=== PATIENT | male | born 1955 | race Caucasian/White ===

== ENCOUNTER 2023-08-10 08:44 | Day surgery (SDC) | payer OTHER, SELFPAY ==
[2023-08-10 08:51] VITALS: BMI 32.4
--- NOTE | 2023-08-10 09:00 | HO.ANESPROP2 ---
[facility] Family History Family history of problems with anesthesia: No Surgical History History of Problems with Anesthesia: No Social History Social History Patient Tobacco Use Status: Never used Tobacco Use of substances other than those prescribed or required for medical reasons: No Are you DNR?: No Advance Directives: No Advance Directives Information Provided: Yes Meds Allergies Allergy/AdvReac Type Severity Reaction Status Date / Time No Known Allergies Allergy Verified 08/10/23 08:56 Active Medications: Current Medications Sodium Biphosphate/Sodium Phosphate (Sodium Phosphate,[place]-Dibasic 133 Ml Enema) 133 ml MI ONCE PRN PRN Reason: Poor Colonoscopy Prep Results Home Medications ?Medication ?Instructions ?Recorded ?Confirmed ?Last Taken ?Type Fish Oil 08/07/23 08/07/23 Unknown History fiber 08/07/23 Unknown History finasteride 5 mg DAILY 08/07/23 08/07/23 Unknown History multivitamin 08/07/23 Unknown History pantoprazole 20 mg DAILY 08/07/23 08/07/23 Unknown History simvastatin 08/07/23 Unknown History irbesartan 150 mg tablet PO 08/10/23 08/10/23 08/10/23 History Exam Height,Weight and Vital Signs: Height 5 ft 11 in Weight 105.233 kg Airway Mallampati Class: II (caps 2 laterally) TM Dist: >3cm Neck ROM: Full Heart: rrr Lungs: cta Assessment and Plan Assessment Anesthesia Assessment: Anesthesia Plan Discussed and Chart Reviewed Final Anesthetic Review Family History of Problems with Anesthesia: No History of Problems with Anesthesia: No NPO: Yes ASA Class: II Final Preanesthetic Review: No Changes in Pt Med Stat, Meds/Allgs Chart Reviewed and Consent Obtained/Reviewed Patient Risk: Low Procedure Risk: Low Anesthetic Plan Anesthetic Plan: MAC: Disposition: Standard PACU
[2023-08-10 09:11] VITALS: BP 158/80; PULSE 58; RESP 16; TEMP 36.3; O2SAT 98
[2023-08-10] MEDS: Lactated Ringers 1,000 ML 80 ML IVCONT (09:14)
[2023-08-10 10:28] VITALS: BP 139/115; PULSE 58; RESP 12; TEMP 36.2; O2SAT 93
--- NOTE | 2023-08-10 10:29 | P.BOP_ITS ---
Brief Operative Note Date of Service: 08/10/23 Pre-op diagnosis: Screening Post-op diagnosis: other (Diverticulosis) Procedure: Colonoscopy to the cecum and TI Surgeon: Isaac Cosby MD Anesthesia: MAC Was an [employer] Compliance [employer] used for this Procedure?: No Estimated blood loss (mL): 0 Pathology: none sent Condition: stable Disposition: PACU
[2023-08-10 10:30] VITALS: BP 101/60; PULSE 67
[2023-08-10 10:45] VITALS: BP 126/76; PULSE 50; RESP 15; TEMP 36.8; O2SAT 95
--- NOTE | 2023-08-10 10:50 | OP_ITS ---
DATE OF SERVICE: 08/10/2023 SURGEON: Isaac Cosby MD INDICATIONS: The patient presents for evaluation of colorectal cancer screening and personal history of tubular adenoma of the colon. Full consent has been obtained from him for this, including risks of bleeding and perforation. PREOPERATIVE DIAGNOSIS: POSTOPERATIVE DIAGNOSIS: PROCEDURE PERFORMED: Colonoscopy to cecum and terminal ileum. ESTIMATED BLOOD LOSS: COMPLICATIONS: ANESTHESIA: Monitored anesthesia care. ASSISTANTS: SPECIMENS: PREOPERATIVE DIAGNOSES: Colorectal cancer screening and personal history of tubular adenoma of the colon. POSTOPERATIVE DIAGNOSES: Colorectal cancer screening, personal history of tubular adenoma of the colon, mild sigmoid diverticulosis, and internal hemorrhoids. DESCRIPTION OF PROCEDURE: The patient was placed in the left decubitus position. The digital rectal exam revealed no abnormalities. The Olympus video pediatric colonoscope was then entered into the rectum and advanced easily to the cecum. Once in the cecum, I did identify normal-appearing cecal pouch with appendiceal orifice and a normal-appearing ileocecal valve. The terminal ileum was cannulated and appeared normal. The scope was withdrawn back in the colon. The entire cecum and ileocecal valve appeared normal. The scope was slowly withdrawn assessing all mucosal surfaces carefully. Preparation was excellent. I did not visualize any sign of polyps, colitis, nor angiodysplasias. There was a mild amount of sigmoid diverticulosis. There was some areas of slight erythema in the sigmoid colon, but not consistent with colitis nor any other abnormality. In the rectum, scope was retroflexed, visualizing some internal hemorrhoids, but no other pathology. The rectal mucosa appeared normal. The scope was straightened and withdrawn from the patient. He tolerated the procedure well and was returned to the recovery area in stable condition. IMPRESSION: 1. Diverticulosis. 2. Internal hemorrhoids. PLAN: I would recommend a repeat colonoscopy in 5 years for further screening. He will, otherwise, see me on a p.r.n. basis. Isaac Cosby MD RMW/VAHEL / [phone]
--- NOTE | 2023-08-10 12:51 | PC.NURSE ---
24 hour update documented on paper chart.
== END 2023-08-10 11:03 | disposition home or self-care (01) ==
PROVIDERS: PCP Family Medicine; Visit Provider Internal Medicine
PROC: 0DJD8ZZ Inspection of Lower Intestinal Tract, Via Natural or Artificial Opening Endoscopic (ICD-10-PCS; CPT 45378; principal; 2023-08-10 09:40)
DX: Z12.11 Encounter for screening for malignant neoplasm of colon (principal); Z86.010 Personal history of colon polyps; K57.30 Diverticulosis of large intestine without perforation or abscess without bleeding; K64.8 Other hemorrhoids; K21.9 Gastro-esophageal reflux disease without esophagitis; K44.9 Diaphragmatic hernia without obstruction or gangrene; I10 Essential (primary) hypertension; F41.9 Anxiety disorder, unspecified; Z79.899 Other long term (current) drug therapy
CPT/HCPCS: 45378; J2704